=== PATIENT | female | born 1955 | race Caucasian/White ===

== ENCOUNTER 2020-10-28 14:33 | Outpatient (CLI) | payer BC, SELFPAY ==
--- NOTE | ~2020-10-28 | MR_ITS ---
EXAMINATION: MR shoulder RT wo con DATE: 10/28/2020 15:36 INDICATION: Impingement syndrome of the right shoulder presenting with right shoulder pain and limite d range of motion TECHNIQUE: Magnetic resonance imaging (MRI) of the right shoulder was performed without intravenous c ontrast. Sequences included axial PD-weighted FS FSE, coronal oblique PD-weighted FS FSE, coronal obl ique T2-weighted FS FSE, sagittal PD-weighted FS FSE, and sagittal T1-weighted SE. COMPARISON: Right shoulder radiographs dated 09/11/2020 FINDINGS: Coracoacromial arch: The acromion undersurface is flat in morphology (type I). The coracoacromial ligament is normal. Mode rate acromioclavicular osteoarthritis. Rotator cuff: Mild supraspinatus and infraspinatus tendinopathy. Bursal thickness tear/tears along the superior fac et footplates of the supraspinatus and conjoined supraspinatus and infraspinatus tendons. There is an endotracheal sided tear measuring 1.5 cm AP along superior facet and anterior portion of the middle facet footplates involving approximately one third of the tendon thickness throughout the majority of the tear with small portion of more severe tearing involving up to two thirds of the tendon thicknes s where anteriorly measuring 3 mm AP extending along the distal supraspinatus tendon and more posteri servando along the conjoined portion of the tendon which measures 5 mm AP. The teres minor tendon is norm al. Mild subscapularis tendinopathy without discrete tear. Normal rotator cuff muscle bulk and signal . Biceps tendon, glenoid labrum and glenohumeral cartilage: Mild tendinopathy of the long head biceps tendon with longitudinal split tearing at the junction of t he intra-articular and extra articular portions of the tendon. Chondral labral delamination with shal low tear at the base of the 2:00-11:00 position of the posterior superior glenoid labrum. Glenohumera l cartilage appears otherwise normal. Fluid: Very small glenohumeral joint effusion. No loose osteochondral bodies. Small amount of fluid and mild synovitis along the long head biceps tendon sheath consistent with mild bicipital tenosynovitis. Sma ll amount of fluid in the subacromial/subdeltoid bursa consistent with mild bursitis. Bones: Bone alignment is normal. No fracture or pathologic marrow replacing process. Mild erosive change becki ng the superior facet footplate of the greater tuberosity likely related to chronic rotator cuff dise ase. IMPRESSION: 1. Mild supraspinatus and infraspinatus tendinopathy with partial-thickness mild to moderate severity articular sided tear along the greater tuberosity footplate of the supraspinatus and conjoined porti on of the supraspinatus and infraspinatus tendons. 2. Small tear at the posterior superior glenoid labrum. 3. Mild bicipital tenosynovitis with mild tendinopathy and longitudinal split tearing of the long hea d biceps tendon. 4. Mild subacromial/subdeltoid bursitis. 5. Moderate acromioclavicular osteoarthritis. Reviewed, dictated and finalized at location B. KNITTER IMPRESSION: 1. Mild supraspinatus and infraspinatus tendinopathy with partial-thickness mil d to moderate severity articular sided tear along the greater tuberosity footpl ate of the supraspinatus and conjoined portion of the supraspinatus and infrasp inatus tendons. 2. Small tear at the posterior superior glenoid labrum. 3. Mild bicipital tenosynovitis with mild tendinopathy and longitudinal split t earing of the long head biceps tendon. 4. Mild subacromial/subdeltoid bursitis. 5. Moderate acromioclavicular osteoarthritis.
== END 2020-10-28 14:34 | disposition home or self-care (01) ==
PROVIDERS: PCP Internal Medicine; Visit Provider Orthopaedic Surgery
DX: M75.41 Impingement syndrome of right shoulder (principal); M19.011 Primary osteoarthritis, right shoulder; M75.51 Bursitis of right shoulder; M75.21 Bicipital tendinitis, right shoulder
CPT/HCPCS: 73221

== ENCOUNTER → 2020-11-23 02:22 | Outpatient (CLI) | payer BC, SELFPAY ==
[2020-11-23 20:22] LABS: SARS-CoV-2 RNA PCR Negative
--- NOTE | 2020-11-26 17:40 | P.OP_ITS ---
Procedure Note - Detailed Date of procedure: 11/26/20 Pre-op diagnosis: covid pre op 1. Rotator cuff tear right shoulder 2. Subacromial impingement Post-op diagnosis: other ( 1. Full-thickness rotator cuff tear right shoulder supraspinatus 2. Subacromial impingement 3. Biceps tendinosis with partial tear) Procedure performed: 1. Arthroscopic rotator cuff repair, right. 2. Arthroscopic subacromial decompression. 3. Arthroscopic biceps tenotomy. Description of procedure: The patient is extremely obese. Examination under anesthesia revealed no other abnormal findings. There was moderate synovitis. Large subacromial spur treated with decompression. Full-thickness supraspinatus tear medium size. Slight reverse L. Minimal retraction. Two tunnel repair with 6 suture rip stop technique. Suture tape used with excellent taoism of the rotator cuff footprint. Articular cartilage normal. [facility]: Marshall Burnett MD [employer] Logger: Brianna Subramanian PA-C Estimated blood loss (mL): 20 Pathology: none sent Complications: None Condition: stable Disposition: PACU Findings: Physician legal assistant, Brianna Subramanian PA-C, required for surgery; including patient positioning, draping, arthroscopic camera operation, maintaining instrument position, suture retrieval, wound closure, and dressing and sling placement. Operative detail: Preoperative antibiotics were given. An interscalene block was administered in the preoperative area. The patient was bought brought to the operating room. A general anesthetic was administered. The patient was carefully positioned in the lateral decubitus position. An axillary roll was placed. The head and neck were carefully positioned. The non operative extremity was also carefully positioned. The shoulder was prepped and draped in the usual sterile fashion. Examination was performed. Standard posterior and anterior arthroscopic portals were established. Inflow achieved with the arthroscopic pump using saline and epinephrine. The glenohumeral joint was carefully inspected. The biceps tendon showed high-grade partial tear near its insertion into the joint. Biceps tenotomy was performed. Attention was turned to the subacromial space. A complete bursectomy was performed. The rotator cuff and footprint were lightly debrided. A modest acromioplasty was performed. The tear configuration was carefully assessed. At this point, 2 tunnels were created at the rotator cuff. One anterior and 1 posterior. The ArthroTunneler technique was utilized. Three sutures were passed through each tunnel. All sutures were then passed through the cuff tissue. The sutures were tied arthroscopically. The arthroscopic instruments were removed. The wounds were closed with 3-0 Monocryl subcuticular suture and steri strips. There were no complications. A sling was applied and the patient brought to the recovery room.
== END ==
PROVIDERS: PCP Internal Medicine; Visit Provider Orthopaedic Surgery
DX: Z01.812 Encounter for preprocedural laboratory examination (principal); Z20.822 Contact with and (suspected) exposure to COVID-19
CPT/HCPCS: C9803; U0003; U0005

== ENCOUNTER 2020-11-26 00:48 | Day surgery (SDC) | payer BC, SELFPAY ==
[2020-11-13 13:11] VITALS: BMI 38.7
--- NOTE | 2020-11-25 10:41 | WPDANESEPPF ---
Anes - Initial Pre Proc Eval Procedure: Operation Date: 11/26/20 12:15 Proposed Procedures p Arthroscopic Right Rotator Cuff Repair With Subacromial Decompression - Marshall Burnett MD Date/Time: 11/25/20 10:41 Surgeon: Marshall Burnett MD Pre Op Diagnosis: Complete Right Rotator Cuff Tear Patient Data Age: 65 Gender: F Height: 1.52 m Weight: 90 kg Allergies Allergy/AdvReac Type Severity Reaction Status Date / Time No Known Allergies Allergy Verified 11/26/20 10:31 Home Medications Medication Instructions Recorded Confirmed Type cyclosporine 0.05 % eye drops in a 1 drp OPHTHALMIC (EYE) Q12H 09/11/20 11/26/20 History dropperette paroxetine HCl 10 mg tablet 10 mg PO DAILY 09/11/20 11/26/20 History ascorbic acid (vitamin C) 500 mg 500 mg PO DAILY 10/18/20 11/26/20 History capsule,extended release biotin 2,500 mcg capsule 2,500 mcg PO DAILY 10/18/20 11/26/20 History calcium carbonate 500 mg calcium 500 mg PO DAILY 10/18/20 11/26/20 History (1,250 mg) capsule calcium polycarbophil 625 mg tablet 1,250 mg PO DAILY 10/18/20 11/26/20 History cyanocobalamin (vitamin B-12) 500 500 mcg PO DAILY 10/18/20 11/26/20 History mcg tablet krill 1 cap PO DAILY 10/18/20 11/26/20 History [id number]-mrr-astax 1,500 mg-165 mg-67.5 mg capsule vitamin E 400 unit capsule 400 unit PO DAILY 10/18/20 11/26/20 History Patient hx anesthesia problems: none Family hx anesthesia problems: none PMFSH Past Medical History Medical History (Updated 10/31/20 @ 16:24 by Marshall Burnett MD) Carpal tunnel syndrome Depression Dry eyes Hyperlipidemia Internal derangement of right shoulder Morbid obesity with BMI of 40.0-44.9, adult Type 2 diabetes mellitus Family History Family History (Updated 04/26/14 @ 07:13 by DOCTOR UNKNOWN) Sibling Family history of rheumatoid arthritis Family history of heart disease in male family member before age 55 Father Family history of heart disease in male family member before age 55 Mother Family history of heart disease in male family member before age 55 Social History Social History Smoking status: Never smoker Alcohol intake: never Substance use: never Substance use type: does not use Living arrangements: with family Gender identity (if verbalized by the patient): Female Spiritual care concerns: No Anes - Eval Final PreProcedure Day of Procedure 11/25/20 10:41 Patient weight: obese Heart: regular rate and rhythm Lungs: clear to auscultation and normal air movement Airway: Mallampati scale class II Neurological: alert and oriented Last oral intake: >/= 8 hours ASA classification: III Emergent: no Anesthetic plan: proceed Anesthesia type and monitoring: general LMA and ETT Informed Consent: The patient's anesthetic plan and its attendant risks and benefits were discussed with the patient/family/POA. Questions were solicited and answers provided to the satisfaction of the patient/family/POA.
[2020-11-26] VITALS (8 sets, daily range): BP systolic 105–125; BP diastolic 59–72; PULSE 65–79; RESP 10–20; TEMP 36.2–36.6; O2SAT 92–100
--- NOTE | 2020-11-26 06:55 | WPDHPUPDATE1 ---
History and Physical Update Update Date/Time: 11/26/20 06:55 History and Physical has been reviewed, including an updated exam of the patient. There are NO changes in the patient's condition. Risks, benefits, and alternatives have been discussed and questions answered. Patient agrees to proceed with procedure.
[2020-11-26] MEDS: ACETAMINOPHEN 500 MG TABLET 1000 MG PO (11:19)
[2020-11-26] MEDS: LACTATED RINGERS 1,000 ML 30 ML IV CONT ×2 (11:20→15:06)
[2020-11-26] MEDS: KETOROLAC 15 MG/ML VIAL (*BKC) IV PUSH (11:24)
--- NOTE | 2020-11-26 11:34 | WPDANESPNB ---
Anes - Peripheral Nerve Block Date/Time: 11/26/20 11:34 I have discussed with the patient/family/POA the placement of a peripheral nerve block for post-operative pain management, including associated risks, benefits, complications, and side effects. Alternative methods of post-operative analgesia were detailed. Questions were solicited and answers provided to the satisfaction of the patient/family/POA. Time-Out: A pre-procedural Time-Out was completed immediately before starting the procedure and confirmed: Patient Identification, Site, Procedure, Patient Position and the Availability of Requisite Equipment. Clinical Indications: Acute post-operative pain management requested by the operative surgeon. Nerve Block Insertion Note Needle: 22 gauge, stimulating, insulated echogenic needle.
[2020-11-26] MEDS: ceFAZolin 2 GM/D5W 50 ML 2 GM/50 ML BAG IVPB (12:51)
[2020-11-26] MEDS: BUPIVACAINE/EPINEPHRINE 0.5% 30 ML VIAL INFILTRATE (13:56)
[2020-11-26] MEDS: fentaNYL CITRATE INJ (*CRX) 100 MCG/2 ML VIAL 25 MCG IV PUSH ×3 (15:29→15:46)
[2020-11-26] MEDS: oxyCODONE HCL (*CRX) 5 MG TAB IR PO (16:28)
--- NOTE | 2020-11-26 17:40 | OP_ITS ---
This report was moved to the correct visit, [id number] on 11/28/20. Original report was signed by Marshall Burnett MD on 11/28/20 1148. Procedure Note - Detailed Date of procedure: 11/26/20 Pre-op diagnosis: covid pre op 1. Rotator cuff tear right shoulder 2. Subacromial impingement Post-op diagnosis: other ( 1. Full-thickness rotator cuff tear right shoulder supraspinatus 2. Subacromial impingement 3. Biceps tendinosis with partial tear) Procedure performed: 1. Arthroscopic rotator cuff repair, right. 2. Arthroscopic subacromial decompression. 3. Arthroscopic biceps tenotomy. Description of procedure: The patient is extremely obese. Examination under anesthesia revealed no other abnormal findings. There was moderate synovitis. Large subacromial spur treated with decompression. Full-thickness supraspinatus tear medium size. Slight reverse L. Minimal retraction. Two tunnel repair with 6 suture rip stop technique. Suture tape used with excellent religion of the rotator cuff footprint. Articular cartilage normal. Anesthesia: [facility] Surgeon: Marshall Burnett MD Manager Medical Writing: Brianna Subramanian PA-C Estimated blood loss (mL): 20 Pathology: none sent Complications: None Condition: stable Disposition: PACU Findings: Physician economic research assistant, Brianna Subramanian PA-C, required for surgery; including patient positioning, draping, arthroscopic camera operation, maintaining instrument position, suture retrieval, wound closure, and dressing and sling placement. Operative detail: Preoperative antibiotics were given. An interscalene block was administered in the preoperative area. The patient was bought brought to the operating room. A general anesthetic was administered. The patient was carefully positioned in the lateral decubitus position. An axillary roll was placed. The head and neck were carefully positioned. The non operative extremity was also carefully positioned. The shoulder was prepped and draped in the usual sterile fashion. Examination was performed. Standard posterior and anterior arthroscopic portals were established. Inflow achieved with the arthroscopic pump using saline and epinephrine. The glenohumeral joint was carefully inspected. The biceps tendon showed high-grade partial tear near its insertion into the joint. Biceps tenotomy was performed. Attention was turned to the subacromial space. A complete bursectomy was performed. The rotator cuff and footprint were lightly debrided. A modest acromioplasty was performed. The tear configuration was carefully assessed. At this point, 2 tunnels were created at the rotator cuff. One anterior and 1 posterior. The ArthroTunneler technique was utilized. Three sutures were passed through each tunnel. All sutures were then passed through the cuff tissue. The sutures were tied arthroscopically. The arthroscopic instruments were removed. The wounds were closed with 3-0 Monocryl subcuticular suture and steri strips. There were no complications. A sling was applied and the patient brought to the recovery room. This dictation may have been done utilizing a voice recognition system. Attempts have been made to correct errors. However, there may be uncorrected grammatical, spelling, and recognition errors present. Report Initialized date/time: Marshall Burnett MD 11/28/208 Electronically signed by: Marshall Burnett MD 11/28/20 114 [facility]
== END 2020-11-26 17:15 | disposition home or self-care (01) ==
PROVIDERS: PCP Internal Medicine; Visit Provider Orthopaedic Surgery
PROC: (CPT 29805; principal; 2020-11-26 12:15)
DX: S46.011A Strain of muscle(s) and tendon(s) of the rotator cuff of right shoulder, initial encounter (principal); S46.211A Strain of muscle, fascia and tendon of other parts of biceps, right arm, initial encounter; M75.41 Impingement syndrome of right shoulder; M75.21 Bicipital tendinitis, right shoulder; W19.XXXA Unspecified fall, initial encounter; E78.5 Hyperlipidemia, unspecified; E11.9 Type 2 diabetes mellitus without complications; F32.9 Major depressive disorder, single episode, unspecified; E66.9 Obesity, unspecified; Z68.39 Body mass index [BMI] 39.0-39.9, adult
CPT/HCPCS: 29827; 29826; A4565; A9270; J0171; J0690; J1170; J1885; J2370; J2405; J2704; J2765; J3010; J7120